=== PATIENT | female | born 1960 | race Caucasian/White ===

== ENCOUNTER 2016-08-25 10:32 | Emergency (ER) | payer OTHER ==
[2016-08-25] MEDS ORDERED: SODIUM CHLORIDE 1,000 ML IV STA ×2 (10:39→12:14)
[2016-08-25 10:40] VITALS: BMI 28.9
[2016-08-25] MEDS ORDERED: KETOROLAC TROMETHAMINE 30 MG/1 ML VIAL IVPUSH ONE (10:45)
[2016-08-25] MEDS ORDERED: FAMOTIDINE 20 MG/50 ML IVPB 50 ML IVPB ONE ×2 (10:45→10:47)
[2016-08-25] MEDS ORDERED: ONDANSETRON 4 MG/2 ML VIAL IVPB ONE (10:45)
[2016-08-25] MEDS ORDERED: MAG HYDROX/AL HYDROX/SIMETH 30 ML UNIT-DOSE CUP PO ONE (10:45)
[2016-08-25] MEDS ORDERED: SUCRALFATE 1 GM TABLET (FP) PO ONE (10:45)
[2016-08-25] MEDS ORDERED: SUCRALFATE 1 GM TABLET (FP) ONE (10:46)
[2016-08-25] MEDS ORDERED: ONDANSETRON 4 MG/2 ML VIAL ONE (10:47)
[2016-08-25] MEDS ORDERED: KETOROLAC TROMETHAMINE 30 MG/1 ML VIAL ONE (10:47)
[2016-08-25] MEDS ORDERED: MAG HYDROX/AL HYDROX/SIMETH 30 ML UNIT-DOSE CUP ONE (10:47)
--- NOTE | 2016-08-25 10:49 | PDOC ---
History of Present Illness - General History Source: Patient - History of Present Illness Initial Comments: 08/25/16 10:49 The patient is a 56 year old female with a significant past medical history of asthma, chronic back pain, COPD, HLD, and fibromyalgia who presents to the Emergency Department with complaints of abdominal pain, nausea, vomiting, and diarrhea since 10:00pm last night. Pt reports experiencing diarrhea all night and x4 episodes of vomiting. She also reports dysuria and abdominal pain. She denies fever, chills, chest pain, SOB, hematuria, frequency, headache, dizziness. (-)recent travel (+)sick contact: she was at [facility] few days ago to visit her godmother PSH:appendectomy ALL:duloxetine HCl <Fannie Dunn - Last Filed: 08/25/16 10:49> - General History Source: Patient Exam Limitations: No Limitations <Dusty Taveras - Last Filed: 08/25/16 16:10> - General Chief Complaint: Vomiting/Diarrhea Stated Complaint: DIARRHEA, VOMITING, ABD PAIN Time Seen by Provider: 08/25/16 10:37 Past History <Fannie Dunn - Last Filed: 08/25/16 10:49> - Past Medical History Asthma: Yes COPD: Yes Hypercholesterolemia: Yes Other medical history: FIBROMYALGIA - Surgical History Appendectomy: Yes - Psycho/Social/Smoking Cessation Hx Suicidal Ideation: No Smoking History: Former smoker Have you smoked in the past 12 months: No If you are a former smoker, when did you quit?: 5 YRS Information on smoking cessation initiated: No Hx Alcohol Use: No Drug/Substance Use Hx: No Substance Use Type: None <Dusty Taveras - Last Filed: 08/25/16 16:10> - Past Medical History Allergies/Adverse Reactions: Allergies Allergy/AdvReac Type Severity Reaction Status Date / Time duloxetine HCl Allergy Verified 08/25/16 10:36 [From García] Home Medications: Ambulatory Orders Acetaminophen [Tylenol] 650 mg PO Q4H PRN #20 tablet 08/25/16 Atorvastatin Ca [Lipitor] 20 mg PO HS 08/25/16 Cyclobenzaprine HCl [Flexeril -] 10 mg PO PRN 08/25/16 Famotidine [Pepcid] 20 mg PO BID PRN #14 tablet 08/25/16 Loperamide HCl [Imodium -] 2 mg PO Q8H PRN #21 capsule 08/25/16 Mag Hydrox/Al Hydrox/Simeth [Mylanta Suspension -] 30 ml PO Q6H PRN #1 bottle Ondansetron HCl [Zofran] 4 mg PO Q6H PRN #12 tablet 08/25/16 Zolpidem Tartrate [Ambien] 5 mg PO HS 08/25/16 Review of Systems - Review of Systems Able to Perform ROS?: Yes Comments:: 08/25/16 10:50 GENERAL/CONSTITUTIONAL: No fever or chills. No weakness. HEAD, EYES, EARS, NOSE AND THROAT: No change in vision. No ear pain or discharge. No sore throat. CARDIOVASCULAR: No chest pain or shortness of breath. RESPIRATORY: No cough, wheezing, or hemoptysis. GASTROINTESTINAL: Yes: abdominal pain, nausea, vomiting, diarrhea No constipation. GENITOURINARY: Yes: dysuria No frequency, or change in urination. MUSCULOSKELETAL: No joint or muscle swelling or pain. No neck or back pain. SKIN: No rash NEUROLOGIC: No headache, vertigo, loss of consciousness, or change in strength/ sensation. ENDOCRINE: No increased thirst. No abnormal weight change. HEMATOLOGIC/LYMPHATIC: No anemia, easy bleeding, or history of blood clots. ALLERGIC/IMMUNOLOGIC: No hives or skin allergy. All Other Systems: Reviewed and Negative <Fannie Dunn - Last Filed: 08/25/16 10:49> *Physical Exam - Vital Signs Last Vital Signs Temp Pulse Resp BP Pulse Ox 97.8 F 107 H 20 136/79 97 08/25/16 10:34 08/25/16 10:34 08/25/16 10:34 08/25/16 10:34 08/25/16 10:34 - Physical Exam Comments: 08/25/16 10:50 GENERAL: Awake, alert, and fully oriented, in no acute distress HEAD: No signs of trauma EYES: PERRLA, EOMI, sclera anicteric, conjunctiva clear ENT: Auricles normal inspection, hearing grossly normal, nares patent, oropharynx clear without exudates. Moist mucosa NECK: Normal ROM, supple, no lymphadenopathy, JVD, or masses LUNGS: Breath sounds equal, clear to auscultation bilaterally. No wheezes, and no crackles HEART: Regular rate and rhythm, normal S1 and S2, no murmurs, rubs or gallops ABDOMEN: +Generalized abdominal discomfort with no tenderness. Soft, nontender, normoactive bowel sounds. No guarding, no rebound. No masses EXTREMITIES: Normal range of motion, no edema. No clubbing or cyanosis. No cords, erythema, or tenderness NEUROLOGICAL: Cranial nerves II through XII grossly intact. Normal speech, normal gait SKIN: Warm, Dry, normal turgor, no rashes or lesions noted. <Fannie Dunn - Last Filed: 08/25/16 10:49> - Vital Signs Last Vital Signs Temp Pulse Resp BP Pulse Ox 97.8 F 107 H 20 136/79 08/25/16 10:34 08/25/16 10:34 08/25/16 10:34 08/25/16 10:34 08/25/16 10:34 <Dusty Taveras - Last Filed: 08/25/16 16:10> Heart Score/ECG Review #1 ECG reviewed & interpreted by me at: 15:20 08/25/16 16:08 NSR 102, T wave flat aVL, normal axis, normal intervals, QTC 469 msec <Dusty Taveras - Last Filed: 08/25/16 16:10> ED Treatment Course - LABORATORY CBC & Chemistry Diagram: 08/25/16 11:00 08/25/16 11:00 <Dusty Taveras - Last Filed: 08/25/16 16:10> Medical Decision Making - Medical Decision Making 08/25/16 10:46 A portion of this note was documented by scribe services under my direction. I have reviewed the details of the note, within reason, and agree with the documentation with the following case summary and management plan written by me. Patient treated in the ED. Nursing notes are reviewed and incorporated into the medical decision-making. Vital signs reviewed. Peripheral IV access obtained by the nurse, laboratory studies are drawn and sent, reviewed and interpreted by myself. Vital Signs Temp Pulse Resp BP Pulse Ox 97.8 F 107 H 20 136/79 97 08/25/16 10:34 08/25/16 10:34 08/25/16 10:34 08/25/16 10:34 08/25/16 10:34 56 year old female with history of HLD, COPD, fibromyalgia, chronic back pains presents with nausea, vomiting, and diarrhea since yesterday. She was recently visiting her godmother at [facility] 2 days ago and had numerous sick exposures. Yesterday, ~10 pm, developed symptoms. Reports abdominal cramping and dysuria as well. Denies fevers. No travels. Likely viral gastroenteritis. Labs, symptom control and IVF and reassess. Will r /o UTI as well given dysuria. 08/25/16 16:00 CBC, BMP 08/25/16 11:00 08/25/16 11:00 CMP Sodium 140 mmol/L (136-145) 08/25/16 11:00 Potassium 4.3 mmol/L (3.5-5.1) 08/25/16 11:00 Chloride 108 mmol/L (98-107) H 08/25/16 11:00 Carbon Dioxide 23 mmol/L (21-32) 08/25/16 11:00 Anion Gap 9 (8-16) 08/25/16 11:00 BUN 13 mg/dL (7-18) 08/25/16 11:00 Creatinine 0.7 mg/dL (0.55-1.02) 08/25/16 11:00 Creat Clearance w eGFR > 60 (>60) 08/25/16 11:00 Random Glucose 100 mg/dL (74-106) 08/25/16 11:00 Calcium 8.7 mg/dL (8.5-10.1) 08/25/16 11:00 Total Bilirubin 0.7 mg/dL (0.2-1.0) D 08/25/16 11:00 AST 32 U/L (15-37) D 08/25/16 11:00 ALT 29 U/L (12-78) 08/25/16 11:00 Alkaline Phosphatase 82 U/L (45-117) 08/25/16 11:00 Creatine Kinase 156 IU/L (26-192) 08/25/16 11:00 CK-MB (CK-2) < 1.0 ng/ml (0.5-3.6) 08/25/16 11:00 Troponin I < 0.02 ng/ml (0.00-0.05) 08/25/16 11:00 Total Protein 8.1 g/dl (6.4-8.2) 08/25/16 11:00 Albumin 4.1 g/dl (3.4-5.0) 08/25/16 11:00 Lipase 162 U/L (73-393) 08/25/16 11:00 Urine Test Results Urine Color Yellow 08/25/16 11:20 Urine Appearance Slcloudy 08/25/16 11:20 Urine pH 5.0 (5.0-8.0) 08/25/16 11:20 Ur Specific [place] 1.023 (1.001-1.035) 08/25/16 11:20 Urine Protein 1+ (NEGATIVE) H 08/25/16 11:20 Urine Glucose (UA) Negative (NEGATIVE) 08/25/16 11:20 Urine Ketones Negative (NEGATIVE) 08/25/16 11:20 Urine Blood 2+ (NEGATIVE) H 08/25/16 11:20 Urine Nitrite Negative (NEGATIVE) 08/25/16 11:20 Urine Bilirubin Negative (NEGATIVE) 08/25/16 11:20 Ur Leukocyte Esterase Negative (NEGATIVE) 08/25/16 11:20 Urine RBC 1 /hpf (0-3) 08/25/16 11:20 Urine WBC 4 /hpf (3-5) 08/25/16 11:20 Ur Epithelial Cells Few /hpf (FEW) 08/25/16 11:20 Urine Bacteria Rare /hpf (NONE SEEN) 08/25/16 11:20 Urine Mucus Rare 08/25/16 11:20 Patient continues to have persistent abdominal discomfort and diarrhea and vomiting. Patient reports that she's having significant pain. Given the patient' s illness, decision was made to obtain a CAT scan the abdomen pelvis. CT scan of the abdomen and pelvis reviewed. Appears to have diarrhea illness, again likely viral. Patient feels moderately improved. I again suspect that this is a gastroenteritis. Symptomatic control and tolerating by mouth. I checked the patient that if she is unable to tolerate by mouth or is having uncontrollable symptoms at home, she may need to be admitted for IV fluids. Patient verbalized that she will like to try medications at home and reassess her self. This is a reasonable plan for the patient. I discussed the physical exam findings, ancillary test results and final diagnoses with the patient. I answered all of the patient's questions. The patient was satisfied with the care received and felt comfortable with the discharge plan and treatment plan. The patient will call their primary care physician within 24 hours to arrange follow-up and will return to the Emergency Department with any new, persistant or worsening symptoms. <Dusty Taveras - Last Filed: 08/25/16 16:10> *DC/Admit/Observation/Transfer - Attestations Scribe Attestion: 08/25/16 10:51 Documentation prepared by Fannie Dunn, acting as paramedical aide for Dusty Taveras MD. <Fannie Dunn - Last Filed: 08/25/16 10:49> - Discharge Dispostion Admit: No <Dusty Taveras - Last Filed: 08/25/16 16:10> Diagnosis at time of Disposition: Gastroenteritis - Discharge Dispostion Disposition: HOME Condition at time of disposition: Improved - Prescriptions Prescriptions: Loperamide HCl [Imodium -] 2 mg PO Q8H PRN #21 capsule PRN Reason: Diarrhea Mag Hydrox/Al Hydrox/Simeth [Mylanta Suspension -] 30 ml PO Q6H PRN #1 bottle PRN Reason: Abdominal Pain Famotidine [Pepcid] 20 mg PO BID PRN #14 tablet PRN Reason: Abdominal Pain Acetaminophen [Tylenol] 650 mg PO Q4H PRN #20 tablet PRN Reason: Pain Ondansetron HCl [Zofran] 4 mg PO Q6H PRN #12 tablet PRN Reason: Nausea - Patient Instructions Printed Discharge Instructions: DI for Viral Gastroenteritis -- Adult Additional Instructions: Please take the medications as prescribed. Drink plenty of fluids. If you cannot keep any fluids down or have uncontrollable pain, please return to the ER as you may need to be admitted to the hospital for IV fluids.
[2016-08-25 11:17] LABS: BASOPHIL 0.4 % (0-2.0); EOSINOPHIL 1.1 % (0-4.5); MCH 28.6 pg (25.7-33.7); MCHC 33.3 g/dl (32.0-36.0); MEAN CELL VOLUME 85.9 fl (80-96); MEAN PLT VOLUME 9.4 fl (7.5-11.1); NEUTROPHILS 82.1 % (42.8-82.8); PLATELET COUNT 175 K/MM3 (134-434); RDW 14.7 % (11.6-15.6); WHITE BLOOD COUNT 6.9 K/mm3 (4.0-10.0)
[2016-08-25 11:27] LABS: URINE APPEARANCE SLCLOUDY; URINE BILIRUBIN NEGATIVE (NEGATIVE); URINE COLOR YELLOW; URINE GLUCOSE (UA) NEGATIVE (NEGATIVE); URINE KETONE NEGATIVE (NEGATIVE); URINE LEUK ESTERASE NEGATIVE (NEGATIVE); URINE NITRITE NEGATIVE (NEGATIVE); URINE UROBILINOGEN NEGATIVE E.U./dl (0.2-1.0)
[2016-08-25 11:29] LABS: URINE BLOOD 2+ (NEGATIVE); URINE PROTEIN 1+ (NEGATIVE)
[2016-08-25 11:38] LABS: URINE BACTERIA RARE /hpf (NONE SEEN); URINE MUCUS RARE; URINE RBC 1 /hpf (0-3); URINE WBC 4 /hpf (3-5)
[2016-08-25 11:44] LABS: ALBUMIN 4.1 g/dl (3.4-5.0); ANION GAP 9 (8-16); BILIRUBIN,TOTAL 0.7 mg/dL (0.2-1.0); CALCIUM 8.7 mg/dL (8.5-10.1); CO2 23 mmol/L (21-32); CREATININE 0.7 mg/dL (0.55-1.02); GLUCOSE,RANDOM 100 mg/dL (74-106); SGPT/ALT 29 U/L (12-78); TOT PROT 8.1 g/dl (6.4-8.2)
[2016-08-25 11:47] LABS: ALK PHOS 82 U/L (45-117); TROPONIN I < 0.02 ng/ml (0.00-0.05)
[2016-08-25 11:49] LABS: SGOT/AST 32 U/L (15-37)
[2016-08-25] MEDS ORDERED: PANTOPRAZOLE SODIUM 40 MG in SODIUM CHLORIDE 100 ML IVPB ONE (12:14)
[2016-08-25] MEDS ORDERED: ACETAMINOPHEN 325 MG TABLET (FP) PO ONE (12:14)
[2016-08-25] MEDS ORDERED: ACETAMINOPHEN 325 MG TABLET (FP) ONE (12:27)
[2016-08-25] MEDS ORDERED: PANTOPRAZOLE SODIUM 100 ML IVPB ONE (12:28)
[2016-08-25] MEDS ORDERED: LOPERAMIDE HCL 2 MG CAPSULE PO ONE (12:32)
[2016-08-25] MEDS ORDERED: LOPERAMIDE HCL 2 MG CAPSULE ONE (12:40)
[2016-08-25] MEDS ORDERED: morphine CARPU-JECT 4 MG/1 ML DISP.SYRIN IVPUSH ONE (14:15)
[2016-08-25] MEDS ORDERED: morphine CARPU-JECT 4 MG/1 ML DISP.SYRIN ONE (14:19)
[2016-08-25 15:25] VITALS: TEMP 97.8
[2016-08-25 16:23] VITALS: BP 132/72; PULSE 92
--- NOTE | 2016-08-26 13:09 | EKG ---
Test Reason : Blood Pressure : / mmHG Vent. Rate : 102 BPM Atrial Rate : 102 BPM P-R Int : 170 ms QRS Dur : 078 ms QT Int : 360 ms P-R-T Axes : 069 039 075 degrees QTc Int : 469 ms SINUS TACHYCARDIA NONSPECIFIC T WAVE ABNORMALITY ABNORMAL ECG WHEN COMPARED WITH ECG OF 11-JUL-2016 15:10, T WAVE VARIATION Confirmed by EYAD PATTERSON MD ([id number]) on 08/26/2016 1:09:00 PM Referred By: Overread By: EYAD PATTERSON MD
== END 2016-08-25 17:11 | disposition home or self-care (01) ==
LOC: JER 10:32
DX: K52.9 Noninfective gastroenteritis and colitis, unspecified (principal); J45.909 Unspecified asthma, uncomplicated; J44.9 Chronic obstructive pulmonary disease, unspecified; E78.5 Hyperlipidemia, unspecified; M79.7 Fibromyalgia
CPT/HCPCS: 36415; 74177-TC; 80053; 81003; 81015; 82550; 82553; 83690; 84484; 85025; 87086; 93005; 93010; 99283-25

== ENCOUNTER 2016-09-06 14:13 | Emergency (ER) | payer OTHER ==
[2016-09-06 14:25] VITALS: BP 135/88; BMI 28.3
[2016-09-06] MEDS ORDERED: ACETAMINOPHEN 325 MG TABLET (FP) PO ONE (14:34)
[2016-09-06] MEDS ORDERED: ACETAMINOPHEN 325 MG TABLET (FP) ONE (14:36)
--- NOTE | 2016-09-06 14:45 | PDOC ---
History of Present Illness - General Chief Complaint: Cold Symptoms Stated Complaint: FEVER, CHILLS, MIGRAINE Time Seen by Provider: 09/06/16 14:33 History Source: Patient Exam Limitations: No Limitations - History of Present Illness Initial Comments: CHIEF COMPLAINT: 56 y/o febrile, tachycardic female with PMH HLD, reflux c/o flu like symptoms. HISTORY OF PRESENT ILLNESS: The patient states that out of nowhere at about 8pm yesterday she developed body aches, fever, dry cough and headache. She also admits to runny nose. She took aspirin for her fever this morning. She denies neck pain, earache, sore throat, n/v/d, CP, SOB, abd pain. The patient did not have her flu shot this year. Vital signs on arrival are notable for pulse of 116 secondary to temp of 99.6. REVIEW OF SYSTEMS: GENERAL/CONSTITUTIONAL: + fever/chills. +body aches. No weakness. No weight change. HEAD, EYES, EARS, NOSE AND THROAT: No change in vision. No ear pain or discharge. No sore throat. +runny nose CARDIOVASCULAR: No chest pain or shortness of breath. RESPIRATORY: +cough. No wheezing, or hemoptysis. GASTROINTESTINAL: No abd pain, nausea, vomiting, diarrhea, constipation.. GENITOURINARY: No dysuria, frequency, or change in urination. MUSCULOSKELETAL: No joint or muscle swelling or pain. No neck or back pain. SKIN: No rash or easy bruising. NEUROLOGIC: +headache. No vertigo, loss of consciousness, or loss of sensation. . PHYSICAL EXAM: GENERAL: The patient is awake, alert, and fully oriented, in no acute distress. She is non toxic but ill appearing. HEAD: Normal with no signs of trauma. ENT: Pupils equal, round and reactive to light, extraocular movements intact, sclera anicteric, conjunctiva clear. Neck supple. Watery eyes. Clear rhinorrhea. Dry cough. LUNGS: Clear to auscultation bilaterally. Normal excursion. No respiratory distress or use of accessory muscles. CV: RRR, S1/S2, no MRG. Cap refill < 2 sec. ABDOMEN: Soft, non-distended, non-tender even to deep palpation, no hepatomegaly or splenomegaly, no masses. EXTREMITIES: Normal range of motion, no edema. NEUROLOGICAL: Normal speech, normal gait. CN II-XII grossly intact. PSYCH: Normal mood, normal affect. SKIN: Warm, dry, normal turgor, no rashes or lesions noted. Past History - Past Medical History Allergies/Adverse Reactions: Allergies Allergy/AdvReac Type Severity Reaction Status Date / Time duloxetine HCl Allergy Verified 09/06/16 14:21 [From Cymbalta] Home Medications: Ambulatory Orders Atorvastatin Ca [Lipitor] 20 mg PO HS 08/25/16 Cyclobenzaprine HCl [Flexeril -] 10 mg PO PRN 08/25/16 Famotidine [Pepcid] 20 mg PO BID PRN #14 tablet 08/25/16 Zolpidem Tartrate [Ambien] 5 mg PO HS 08/25/16 Guaifenesin AC [Robitussin AC -] 5 ml PO TID #1 bottle MDD 20mL 09/06/16 Asthma: Yes COPD: Yes Hypercholesterolemia: Yes Other medical history: fibromyalgia - Surgical History Appendectomy: Yes - Psycho/Social/Smoking Cessation Hx Anxiety: No Suicidal Ideation: No Smoking History: Never smoked Have you smoked in the past 12 months: No If you are a former smoker, when did you quit?: 5 YRS Information on smoking cessation initiated: No Hx Alcohol Use: No Drug/Substance Use Hx: No Substance Use Type: None *Physical Exam - Vital Signs Last Vital Signs Temp Pulse Resp BP Pulse Ox 99.6 F 116 H 18 135/88 100 09/06/16 14:22 09/06/16 14:22 09/06/16 14:22 09/06/16 14:22 09/06/16 14:22 Medical Decision Making - Medical Decision Making A/P: 56 y/o female who probably has the flu. Plan is as follows: 1. PO tylenol 2. IM toradol 3. Influenza CHEST xray IMPRESSION: Unremarkable exam without evidence of acute lung disease. Influenza A&B - negative The patient's fever and heart rate have come down. Will discharge to home with supportive care instructions. Suggested she f/u with her doctor on friday and return to the ER with any worsening or concerning symptoms. The patient verbalizes understanding of all instructions, has no further questions and is awaiting discharge. *DC/Admit/Observation/Transfer Diagnosis at time of Disposition: Viral URI with cough - Discharge Dispostion Disposition: HOME Condition at time of disposition: Improved - Patient Instructions Printed Discharge Instructions: DI for Viral Upper Respiratory Infection -- Adult Additional Instructions: Discharge Instructions: -Take 650mg of TYlenol every 4 hours for fever; next tylenol dose at 6:30 -Take 600mg of Motrin every 6 hours with food for body aches -Take prescribed cough medicine for cough; may cause drowsiness -Drink plenty of fluids -Get plenty of rest -Follow up with your doctor on Friday -Return to the ER with any worsening or concerning symptoms
[2016-09-06] MEDS ORDERED: KETOROLAC TROMETHAMINE 60 MG/2 ML VIAL IM ONE (14:52)
[2016-09-06] MEDS ORDERED: KETOROLAC TROMETHAMINE 60 MG/2 ML VIAL ONE (14:56)
[2016-09-06 16:29] VITALS: PULSE 100; TEMP 99.4
== END 2016-09-06 16:42 | disposition home or self-care (01) ==
LOC: JERFT 14:13
PROC: 3E0233Z Introduction of Anti-inflammatory into Muscle, Percutaneous Approach (ICD-10-PCS; principal; 2016-09-06)
DX: J06.9 Acute upper respiratory infection, unspecified (principal); B97.89 Other viral agents as the cause of diseases classified elsewhere; J44.9 Chronic obstructive pulmonary disease, unspecified; J45.909 Unspecified asthma, uncomplicated; E78.00 Pure hypercholesterolemia, unspecified; M79.7 Fibromyalgia
CPT/HCPCS: 71020-TC; 87804; 96372; 99281-25